=== PATIENT | female | born 2000 | race Hispanic/Latino ===

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

== ENCOUNTER 2021-09-19 19:52 | Emergency (ER) | payer OTHER, SELFPAY ==
[2021-09-19 20:02] VITALS: BP 121/66; PULSE 90; RESP 18; TEMP 36.1; O2SAT 100; BMI 27.4
--- NOTE | 2021-09-19 22:03 | ED_ITS ---
HPI - General Adult General Chief complaint: Urogenital-Female Stated complaint: 6WKS FEELS NOT RIGHT AROUND NITROUS GAS Time Seen by Provider: 09/19/21 21:01 Source: patient Mode of arrival: Ambulatory History of Present Illness HPI narrative: Patient is a 21-year-old female. She does recently found out she was . Has not seen an Ob up to this point. Does have vitamins at home. 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 She is also having some abdominal cramping. No vaginal bleeding. Related Data Allergies Allergy/AdvReac Type Severity Reaction Status Date / Time No Known Drug Allergies Allergy Verified 11/28/20 18:34 Review of Systems Gastrointestinal Gastrointestinal: Reports as per HPI and Reports system reviewed and no additional complaints, except as documented Genitourinary Genitourinary: Reports system reviewed and no additional complaints, except as documented and Reports as per HPI Hematologic/Lymphatic On Anticoagulants: No Patient History Medical History Healthy adult Social History Smoking Status: Never smoker Smoking Status: Never smoker alcohol intake frequency: other Substance Use Type: does not use Exam Initial Vital Signs Initial Vital Signs: Vital Signs Temperature 97 F L 09/19/21 20:02 Pulse Rate 90 09/19/21 20:02 Respiratory Rate 18 09/19/21 20:02 Blood Pressure 121/66 09/19/21 20:02 Pulse Oximetry 100 09/19/21 20:02 HENMT Head: normal to inspection and normocephalic Resp Effort & Inspection: normal respiratory effort Cardio Rate: regular rate GI Inspection: normal to inspection Neuro General: patient alert and patient awake Extrem General: normal to inspection Course Orders Ordered: ED Orders 09/19/21 22:15 Urine Culture Stat Urine Microscopic Stat Vital Signs Vital signs: Vital Signs - 8 hr 09/19/21 20:02 09/19/21 22:36 Temperature 97 F L Pulse Rate 90 88 Respiratory Rate 18 18 Blood Pressure 121/66 118/65 Pulse Oximetry 100 100 Medical Decision Making Lab Data Labs: Lab Results 09/19/21 Range/Units 22:15 Urine RBC None seen (0-5/HPF) Urine WBC 1-5/hpf (0-5/HPF) Ur Squamous Epith Cells 0-1 /hpf (0-5/HPF) Urine Bacteria Few (2-10) H (None) Ur Culture Indicated? Culture not indicate Micro UA Comment * Point of Care Testing Test Results Positive Urine Dip Bedside Urine Glucose Negative Bedside Urine Bilirubin - Negative Bedside Urine Ketone - Negative Urine Specific [place] 1.010 Bedside Urine Occult Blood - Negative Bedside Urine pH 6.0 Bedside Urine Protein - Negative Bedside Urine Urobilinogen - Negative Bedside Urine Nitrite - Negative Bedside Urine Leukocytes + 70 Esterase Point of care testing: Point of Care Testing Test Results Positive Urine Dip Bedside Urine Glucose Negative Bedside Urine Bilirubin - Negative Bedside Urine Ketone - Negative Urine Specific [place] 1.010 Bedside Urine Occult Blood - Negative Bedside Urine pH 6.0 Bedside Urine Protein - Negative Bedside Urine Urobilinogen - Negative Bedside Urine Nitrite - Negative Bedside Urine Leukocytes + 70 Esterase MDM Narrative Medical decision making narrative: Urinalysis shows no signs of an infection. She is not having any vaginal bleeding. Her test is positive. Informed her that she should talk with her employer about her status and should probably try to avoid excessive exposure to nitrous oxide. No further workup needed here in the e mergency department. She does have vitamins at home. She was given return precautions. She expressed understanding and agreement. Discharge Plan Departure Patient Disposition: Home Clinical Impression: Activity Restrictions/Additional Instructions: Continue to take your vitamins on a daily basis. Be sure to contact your OB provider for follow-up. Be sure to inform your employer of your status. Return to the emergency department for any new or worsening symptoms.
[2021-09-19 22:36] VITALS: BP 118/65; PULSE 88; RESP 18; O2SAT 100
[2021-09-20 00:29] LABS: Bacteria Urine Few (2-10); RBC Urine None Seen (0-5/HPF); Squamous Epithelial Cell Urine 0-1 /HPF (0-5/HPF); WBC Urine 1-5/HPF (0-5/HPF)
== END 2021-09-19 22:37 | disposition home or self-care (01) ==
PROVIDERS: Emergency Provider Emergency Medicine
DX: Z32.01 Encounter for pregnancy test, result positive (principal)
CPT/HCPCS: 81003; 81015; 81025; 87086; 99282

== ENCOUNTER → 2021-11-19 10:12 | Outpatient (CLI) | payer OTHER, SELFPAY ==
[2021-11-19 10:49] LABS: Add Manual Diff / Slide Review NO; Basophils Absolute Auto 0 /uL (0-100); Basophils Percent Auto 0.3 % (0-2); Eosinophils Absolute Auto 0 /uL (0-450); Eosinophils Percent Auto 0.3 % (2-4); Hemoglobin 10.9 g/dL (12.0-16.0); Lymphocytes Absolute Auto 1400 /uL (1100-4500); Lymphocytes Percent Auto 21.1 % (25-40); Mean Corpuscular HGB Conc 33.1 % (30-36); Mean Corpuscular Hemoglobin 25.6 PG (26-34); Mean Corpuscular Volume 77.2 fL (80-100); Monocytes Absolute Auto 500 /uL (0-900); Monocytes Percent Auto 7.8 % (3-14); Neutrophils Absolute Auto 4600 /uL (1500-7000); Neutrophils Percent Auto 70.5 % (50-75); Platelet Count 275 X10^3/uL (150-400); Red Blood Cell Count 4.28 X10^6/uL (4.0-5.2); Red Cell Distribution Width 18.6 % (11.6-14.8); White Blood Cell Count 6.5 X10^3/uL (4.5-11.0)
[2021-11-19 13:06] LABS: Appearance Urine UA CLEAR; Bilirubin Urine UA NEGATIVE (NEGATIVE); Color Urine UA YELLOW; Glucose Urine UA NEGATIVE (Negative); Ketones Urine UA NEGATIVE (NEGATIVE); Leukocyte Esterase Urine UA NEGATIVE (NEGATIVE); Nitrite Urine UA NEGATIVE (Negative); Occult Blood Urine UA TRACE-INTACT (Negative); Protein Urine UA NEGATIVE (Negative); Urobilinogen Urine UA 0.2 E.U./dL (0.2); pH Urine UA 6.5 (4.5-8.0)
[2021-11-19 22:24] LABS: Urine N gonorrhoeae NOT DETECTED
[2021-11-19 22:45] LABS: Urine Chlamydia NOT DETECTED
[2021-11-20 08:06] LABS: RPR Screen Non Reactive (Non Reactive)
[2021-11-20 08:09] LABS: Varicella IgG Antibody 549 index (Immune >165)
[2021-11-20 17:29] LABS: HIV 1 & 2 Ab/Ag 4th Gen Combo NEGATIVE (NEGATIVE); Hep C Virus Ab w/Reflex Quant NEGATIVE s/c (NEGATIVE); Hepatitis B Surface Antigen NEGATIVE s/c (NEGATIVE); Rubella Antibody IgG 9.2 IU/mL (>15)
== END ==
PROVIDERS: Referring Provider Obstetrics & Gynecology; Visit Provider Obstetrics & Gynecology
DX: Z34.01 Encounter for supervision of normal first pregnancy, first trimester (principal); Z3A.10 10 weeks gestation of pregnancy
CPT/HCPCS: 36415; 80055; 81003; 86787; 86803; 86850; 86900; 86901; 87086; 87389; 87491; 87591

== ENCOUNTER → 2021-12-17 08:24 | Outpatient (CLI) | payer OTHER, SELFPAY ==
[2021-12-19 20:38] LABS: AFP, Serum 29.2 ng/mL (.); Estriol, Free 1.35 ng/mL (.); Inhibin A, Dimeric 132.48 pg/mL (.); Maternal Ethnicity Other (.); Maternal Weight 168 lbs (.); Number of Fetuses No (.); OSBR Risk 1 IN 10000 (.); Results Report (.); Test Results *Screen Negative* (.); hCG, Serum 28402 mIU/mL (.)
== END ==
PROVIDERS: Referring Provider Obstetrics & Gynecology; Visit Provider Obstetrics & Gynecology
DX: Z34.02 Encounter for supervision of normal first pregnancy, second trimester (principal); Z3A.17 17 weeks gestation of pregnancy
CPT/HCPCS: 36415; 82105; 82677; 84702; 86336

== ENCOUNTER → 2022-01-06 07:10 | Outpatient (CLI) | payer OTHER, SELFPAY ==
--- NOTE | 2022-01-06 07:13 | DI.US.S_ITS ---
PROCEDURE: US OB >= 14 WEEKS FETUS INDICATIONS: ANATOMY OUTSIDE/PRIOR DATING DATA: Last menstrual period (LMP): Unknown. LMP-based estimated date of delivery (GABRIELE): Unknown First dating scan (date and location): 01/06/2022. Estimated date of delivery (GABRIELE) from first dating scan: 05/20/2022. TECHNIQUE: Real-time scanning was performed of the fetus, with image documentation and biometric measurements. Endovaginal scanning: None COMPARISON: None. FINDINGS: General: A single living intrauterine gestation is present. Presentation: Vertex. Placenta: Placental position is posterior. Internal cervical os not well visualized due to positioning. Amniotic fluid index: 16.6 cm, normal range is 5-24 cm. Single deepest vertical pocket is 5.5 cm. heart rate: 141 beats per minute. Maternal cervical canal: 3.2 cm long. Normal lower limit is 2.5 cm. biometrics: Biparietal diameter: 4.9 cm, 20 week 5 day Head circumference: 1 point 17.5 cm, 20 week 0 day Abdominal circumference: 16.6 cm, 21 week 5 day Femur length: 3.4 cm, 20 week 5 day Clinically estimated gestational age: Not applicable Composite gestational age from present scan: 20 week 6 day Estimated weight and percentile: 398 g Anatomic survey: Neuro: Ventricles are non-dilated at less than 10 mm. Cisterna magna is normal at 3-11 mm. Cerebellum is normal in size and morphology. Nuchal skin fold: Normal at less than 6 mm between 14-21 weeks gestational age. Face: Not well visualized Spine: No evidence for spina bifida. Heart: 4-chambered heart is present, with normal ventricular outflow tracts. Diaphragm: Diaphragm is intact. Stomach: Left-sided stomach is present. Kidneys: No hydronephrosis. Normal is less than 5 mm in 2nd trimester, less than 7 mm in 3rd trimester. Cord: 3-vessel cord has orthotopic insertion. Bladder: Normal in size. Extremities: All 4 extremities identified. IMPRESSION: Single live intrauterine consistent with 20 week 6 day gestation by current ultrasound. face, nose and lips not well visualized due to positioning. Remaining visualized anatomy within normal limits Internal cervical os not well visualized as well, and previa not excluded. Evaluate on follow-up imaging. Approved by: Cosme Hurtado M.D. on 01/06/2022 at 10:30
== END ==
PROVIDERS: Referring Provider Obstetrics & Gynecology; Visit Provider Obstetrics & Gynecology
DX: Z34.82 Encounter for supervision of other normal pregnancy, second trimester (principal); Z3A.20 20 weeks gestation of pregnancy
CPT/HCPCS: 76811

== ENCOUNTER → 2022-01-20 06:34 | Outpatient (CLI) | payer OTHER, SELFPAY ==
--- NOTE | 2022-01-20 06:40 | DI.US.S_ITS ---
PROCEDURE: US OB FOLLOW UP INDICATIONS: Finish survey, visualize face and rule out previa OUTSIDE/PRIOR DATING DATA: Last menstrual period (LMP): Un known LMP-based estimated date of delivery (GABRIELE): Unknown First dating scan (date and location): 01/06/2022 Estimated date of delivery (GABRIELE) from first dating scan: 05/20/2022. The calculations are made using the study generated GABRIELE of 05/20/2022. TECHNIQUE: Real-time scanning was performed of the fetus, with image documentation . Endovaginal scanning: Not indicated COMPARISON: [facility], OB >= 14 WEEKS FETUS, 01/06/2022, 7:35. FINDINGS: General: A single living intrauterine gestation is present. Presentation: Breech. Placenta: Placental position is posterior, without previa. Amniotic fluid index: 17.5 cm, normal range is 5-24 cm. Single deepest vertical pocket is 5.4 cm. heart rate: 141 beats per minute. Maternal cervical canal: 3.2 cm long. Normal lower limit is 2.5 cm. Composite gestational age from present scan: 22 weeks, 6 days. Other: facial profile is visualized on the current study and is within normal limits. IMPRESSION: Single live intrauterine gestation with fetus in breech presentation. heart rate is 141 beats per minute. Normal amount of amniotic fluid. Normal facial profile seen on the current study. Dictated by: Karan Reich M.D. on 01/20/2022 at 9:33 Approved by: Karan Reich M.D. on 01/20/2022 at 9:36
== END ==
PROVIDERS: Referring Provider Obstetrics & Gynecology; Visit Provider Obstetrics & Gynecology
DX: Z34.02 Encounter for supervision of normal first pregnancy, second trimester (principal)
CPT/HCPCS: 76816

== ENCOUNTER → 2022-02-14 09:24 | Outpatient (CLI) | payer OTHER, SELFPAY ==
[2022-02-14 12:36] LABS: Hematocrit 28.3 % (36-46); Hemoglobin 9.2 g/dL (12.0-16.0)
[2022-02-14 13:03] LABS: GTT (PREG) 1 Hour PP 50gm Dose 104 mg/dL (76-139)
== END ==
PROVIDERS: Referring Provider Obstetrics & Gynecology; Visit Provider Obstetrics & Gynecology
DX: Z34.02 Encounter for supervision of normal first pregnancy, second trimester (principal); Z3A.26 26 weeks gestation of pregnancy
CPT/HCPCS: 36415; 82950; 85014; 85018

== ENCOUNTER 2022-02-19 08:36 | Emergency (ER) | payer OTHER, SELFPAY ==
[2022-02-19] VITALS (12 sets, daily range): BP systolic 98–124; BP diastolic 56–76; PULSE 76–101; RESP 16–18; TEMP 36.9; O2SAT 98–100; BMI 29.1
--- NOTE | 2022-02-19 08:53 | ED_ITS ---
HPI - Nausea/Vomiting/Diarrhea General Chief complaint: Nausea/Vomiting/Diarrhea Stated complaint: throwing up after starting new meds- 6.5 mo preg Time Seen by Provider: 02/19/22 08:45 History of Present Illness HPI Narrative: Patient here with partner, vomited 6 times this morning. In the past few days has had mild diffuse headache. No sick contacts. Had chills this morning. She did start iron supplement pill this morning. Not had that before. No urinary complaints. No abdominal pain. No fluid leak or vaginal bleeding. Patient is 27 weeks . Patient is . Last OB appointment was February 12, 2022. Expected due date May 2022. heart tone 126 Related Data Home Medications Medication Instructions Recorded Confirmed prenat.vits,vani,pcp-blpe-qccll 1 tab PO DAILY 11/12/21 02/12/22 Previous Rx's Medication Instructions Recorded ondansetron HCl 4 mg tablet 4 mg PO Q8H PRN nausea and 11/19/21 vomiting #20 tabs ferrous sulfate 325 mg (65 mg 325 mg PO DAILY #90 tabs 02/14/22 iron) tablet (Iron (ferrous sulfate)) Allergies Allergy/AdvReac Type Severity Reaction Status Date / Time peanuts Allergy Intermediate Rash Uncoded 02/12/22 09:38 Review of Systems Review of Systems Narrative: GENERAL: Positive chills, fatigue, negative malaise, fever, sweats. HEENT: Denies sinus pain, ear pain, sore throat RESPIRATORY: Denies dyspnea, cough CARDIOVASCULAR: Denies chest pain, palpitations GASTROINTESTINAL: Positive nausea, vomiting, negative abdominal pain : Denies dysuria, frequency, hematuria MUSCULOSKELETAL: denies muscle or bony pain SKIN: Denies rash, skin lesions NEUROLOGIC: Denies weakness, numbness, positive headache ROS Unobtainable: All systems reviewed & are unremarkable except as noted in HPI and below Patient History Medical History Healthy adult Surgical History [place] teeth extracted Family History Father Diabetes mellitus Hypothyroid Grandmother Hypothyroid Family/Other H/O thyroidectomy Brother Hyperlipidemia Mother Hypertension Cervical cancer Social History marital status: number of children: 0 household members: spouse lives independently: Yes housing: house pets and animals: Yes education level: vocational 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) current occupational exposures/hazards: Yes (nitrous oxide, performs x-rays) special sofia needs: No travel history: over 6 months ago seatbelt use: always water heater temp set < 120 deg: Yes working smoke detector in home: Yes fire extinguisher in home: Yes carbon monox detector in home: Yes firearms in home: Yes do you feel safe at home: Yes Smoking Status: Never smoker second hand exposure: No alcohol intake: never substance use type: does not use during the past year weight has: other (fluctuated) well-balanced diet: about half the time daily servings fruits/ve-1 caffeine: No Type(s) of exercise: weight lifting Smoking Status: Never smoker alcohol intake frequency: other Substance Use Type: does not use Exam Narrative Exam Narrative: GENERAL: in no distress, not toxic not dyspneic HEAD: Normocephalic. EYES: Pupils equal round No scleral icterus. ENT: Mucous membranes moist. NECK: Trachea midline. Supple, no meningeal signs, full active range of motion without pain. CARDIOVASCULAR: Regular rate and rhythm without murmurs RESPIRATORY: Clear to auscultation. Breath sounds equal bilaterally. No wheezes, rales, or rhonchi. GASTROINTESTINAL: Abdomen soft, non-tender, bowel sounds present. No peritoneal signs. EXTREMITIES: No gross deformities. BACK: No flank tenderness. NEURO: AOx4. SKIN: Warm and dry PSYCH: Not anxious, is cooperative Initial Vital Signs Initial Vital Signs: Vital Signs Pulse Rate 91 H 02/19/22 08:43 Pulse Oximetry 98 02/19/22 08:43 Course Course Course Narrative: No new issues during course of stay Orders Ordered: ED Orders 02/19/22 09:04 Urine Culture Stat Urine Microscopic Stat 02/19/22 09:08 CBC Auto Diff [Complete Blood Count AUTO DIFF] Stat CMP [Comprehensive Metabolic Panel] Stat Respiratory Panel (Film Array) Stat Discontinued Medications Sodium Chloride (Normal Saline 0.9%) 1,000 mls @ 1,000 mls/hr IV BOLUS ONE Stop: 02/19/22 09:50 Last Infusion: 02/19/22 10:46 Dose: 0 mls/hr Documented By: Admin: 02/19/22 09:20 Dose: 1,000 mls/hr Documented By: DEE Ondansetron HCl (Ondansetron 4 Mg/2 Ml Inj) 4 mg IV NOW ONE Stop: 02/19/22 08:52 Last Admin: 02/19/22 09:19 Dose: 4 mg Documented By: DEE Reevaluation(s) Reevaluation #1: Reviewed results with patient and partner. At this time symptom-free. Return precautions reviewed with patient. I did review with them my conversation with her OBGYN. No antibiotics at this time. They will follow the urine culture. Try to take the iron pill tomorrow and if not tolerated to stop taking it and call her OBGYN. Time: 11:39 Consultations Consultation #1: Spoke with patient's OBGYN, dr diane, has reviewed results from exam today. No antibiotics for urine results. She states that is common finding at this state of on urinalysis. Try iron pill again tomorrow and if not tolerated may stop it and call office. See her in her next scheduled appointment. No need to transfer to LD floor for any monitoring Time: 11:30 Vital Signs Vital signs: Vital Signs - 8 hr 02/19/22 08:48 02/19/22 08:43 02/19/22 08:44 Temperature 98.5 F Pulse Rate 94 H 91 H Respiratory Rate 18 Blood Pressure 124/56 L 124/58 L Pulse Oximetry 100 98 Oxygen Delivery Method Room Air 02/19/22 08:44 02/19/22 09:00 02/19/22 09:10 Temperature Pulse Rate 93 H 101 H Respiratory Rate Blood Pressure 114/61 Pulse Oximetry 99 98 Oxygen Delivery Method 02/19/22 09:10 02/19/22 09:30 02/19/22 09:31 Temperature Pulse Rate 83 85 Respiratory Rate Blood Pressure 103/56 L Pulse Oximetry 98 99 Oxygen Delivery Method 02/19/22 09:31 02/19/22 10:00 02/19/22 10:00 Temperature Pulse Rate 85 95 H Respiratory Rate Blood Pressure 98/57 L Pulse Oximetry 100 99 Oxygen Delivery Method 02/19/22 10:30 02/19/22 10:30 02/19/22 10:49 Temperature Pulse Rate 86 Respiratory Rate Blood Pressure 106/57 L 108/68 Pulse Oximetry 99 Oxygen Delivery Method 02/19/22 10:49 02/19/22 11:00 02/19/22 11:50 Temperature Pulse Rate 76 82 88 Respiratory Rate 16 Blood Pressure 103/76 Pulse Oximetry 100 99 99 Oxygen Delivery Method Room Air MDM - Nausea/Vomiting/Diarrhea Differential Diagnosis Differential diagnosis: Likely dehydration and other (Medication reaction /UTI/dehydration/viral infection) Lab Data Result diagrams: 02/19/22 09:08 02/19/22 09:08 Labs: Lab Results 02/19/22 02/19/22 02/19/22 Range/Units 09:04 09:08 09:08 WBC 10.5 (4.5-11.0) X10^3/uL RBC 4.31 (4.0-5.2) X10^6/uL Hgb 10.7 L (12.0-16.0) g/dL Hct 33.4 L (36-46) % MCV 77.5 L (80-100) fL MCH 24.8 L (26-34) PG MCHC 32.0 (30-36) % RDW 16.6 H (11.6-14.8) % Plt Count 296 (150-400) X10^3/uL Neut % (Auto) 74.5 (50-75) % Lymph % (Auto) 18.4 L (25-40) % [place] % (Auto) 6.5 (3-14) % Eos % (Auto) 0.3 L (2-4) % Baso % (Auto) 0.3 (0-2) % Neut # (Auto) 7800 H (2914-0534) /uL Lymph # (Auto) 1900 (6758-6716) /uL [place] # (Auto) 700 (0-900) /uL Eos # (Auto) 0 (0-450) /uL Baso # (Auto) 0 (0-100) /uL Sodium 138 (137-145) mmol/L Potassium 3.7 (3.4-5.1) mmol/L Chloride 104 (98-107) mmol/L Carbon Dioxide 22 (22-32) mmol/L BUN 4 L (7-17) mg/dL Creatinine 0.43 L (0.52-1.04) mg/dL Estimated GFR > 60 (>60) mL/min BUN/Creatinine Ratio 9.3 (6-22) Glucose 89 (70-100) mg/dL Calcium 8.9 (8.4-10.2) mg/dL Total Bilirubin 0.3 (0.2-1.3) mg/dL AST 17 (14-36) IU/L ALT 11 (<35) IU/L Alkaline Phosphatase 88 (38-126) U/L Total Protein 8.2 (6.3-8.2) g/dL Albumin 4.3 (3.5-5.0) g/dL Globulin 3.9 (1.7-4.1) g/dL Albumin/Globulin Ratio 1.1 (1.0-2.8) Urine RBC 0-1/hpf (0-5/HPF) Urine WBC 1-5/hpf (0-5/HPF) Ur Squamous Epith Cells 1-5 /hpf (0-5/HPF) Urine Bacteria Few (2-10) H (None) Urine Yeast 1-5/hpf H (None) Ur Culture Indicated? Specimen cultured Chlamy pneumoniae PCR (Not Detect) Adenovirus (PCR) (Not Detect) B. pertussis DNA (PCR) (Not Detecte) B.parapertussis DNA PCR (Not Detecte) Coronavirus OC43 (PCR) (Not Detect) Coronavirus HKU1 (PCR) (Not Detect) Coronavirus 229E (PCR) (Not Detect) SARS-CoV-2 (PCR) (Not Detecte) Coronavirus NL63 (PCR) (Not Detect) Human Metapneumovir PCR (Not Detect) Influenza Type A (PCR) (Not Detect) Influenza Type B (PCR) (Not Detect) M. pneumoniae (PCR) (Not Detect) Parainfluenza 1 (PCR) (Not Detect) Parainfluenza 2 (PCR) (Not Detect) Parainfluenza 3 (PCR) (Not Detect) Parainfluenza 4 (PCR) (Not Detect) RSV (PCR) (Not Detect) Entero/Rhino (PCR) (Not Detect) 02/19/22 Range/Units 09:08 WBC (4.5-11.0) X10^3/uL RBC (4.0-5.2) X10^6/uL Hgb (12.0-16.0) g/dL Hct (36-46) % MCV (80-100) fL MCH (26-34) PG MCHC (30-36) % RDW (11.6-14.8) % Plt Count (150-400) X10^3/uL Neut % (Auto) (50-75) % Lymph % (Auto) (25-40) % [place] % (Auto) (3-14) % Eos % (Auto) (2-4) % Baso % (Auto) (0-2) % Neut # (Auto) (9022-2929) /uL Lymph # (Auto) (2476-8026) /uL [place] # (Auto) (0-900) /uL Eos # (Auto) (0-450) /uL Baso # (Auto) (0-100) /uL Sodium (137-145) mmol/L Potassium (3.4-5.1) mmol/L Chloride (98-107) mmol/L Carbon Dioxide (22-32) mmol/L BUN (7-17) mg/dL Creatinine (0.52-1.04) mg/dL Estimated GFR (>60) mL/min BUN/Creatinine Ratio (6-22) Glucose (70-100) mg/dL Calcium (8.4-10.2) mg/dL Total Bilirubin (0.2-1.3) mg/dL AST (14-36) IU/L ALT (<35) IU/L Alkaline Phosphatase (38-126) U/L Total Protein (6.3-8.2) g/dL Albumin (3.5-5.0) g/dL Globulin (1.7-4.1) g/dL Albumin/Globulin Ratio (1.0-2.8) Urine RBC (0-5/HPF) Urine WBC (0-5/HPF) Ur Squamous Epith Cells (0-5/HPF) Urine Bacteria (None) Urine Yeast (None) Ur Culture Indicated? Chlamy pneumoniae PCR Not detected (Not Detect) Adenovirus (PCR) Not detected (Not Detect) B. pertussis DNA (PCR) Not detected (Not Detecte) B.parapertussis DNA PCR Not detected (Not Detecte) Coronavirus OC43 (PCR) Not detected (Not Detect) Coronavirus HKU1 (PCR) Not detected (Not Detect) Coronavirus 229E (PCR) Not detected (Not Detect) SARS-CoV-2 (PCR) Not detected (Not Detecte) Coronavirus NL63 (PCR) Not detected (Not Detect) Human Metapneumovir PCR Not detected (Not Detect) Influenza Type A (PCR) Not detected (Not Detect) Influenza Type B (PCR) Not detected (Not Detect) M. pneumoniae (PCR) Not detected (Not Detect) Parainfluenza 1 (PCR) Not detected (Not Detect) Parainfluenza 2 (PCR) Not detected (Not Detect) Parainfluenza 3 (PCR) Not detected (Not Detect) Parainfluenza 4 (PCR) Not detected (Not Detect) RSV (PCR) Not detected (Not Detect) Entero/Rhino (PCR) Not detected (Not Detect) Urine Dip Bedside Urine Glucose Negative Bedside Urine Bilirubin - Negative Urine Specific [place] 1.020 Bedside Urine Occult Blood - Negative Bedside Urine pH 6.0 Bedside Urine Protein - Negative Bedside Urine Urobilinogen - Negative Bedside Urine Nitrite - Negative Bedside Urine Leukocytes + 70 Esterase MDM Narrative Medical decision making narrative: Appropriate for discharge home. Exam and laboratories are reassuring. No imaging indicated this time. I did review with patient's OBGYN and further instructions were given. Return precautions reviewed with patient. She desires discharge home. Not toxic or discharge. Discharge Plan Departure Patient Disposition: Home Clinical Impression: Acute vomiting Instructions: DI for Vomiting -- Adult Activity Restrictions/Additional Instructions: Return if worse if any questions or concerns. See your OBGYN doctor on next scheduled appointment. Keep well hydrated. May try taking iron pill again tomorrow and if not tolerated then stop taking it and call the office for further instructions. Prescriptions: No Action ferrous sulfate [Iron (ferrous sulfate)] 325 mg (65 mg iron) tablet 325 mg PO DAILY Qty: 90 0RF ondansetron HCl 4 mg tablet 4 mg PO Q8H PRN (Reason: nausea and vomiting) Qty: 20 0RF prenat.vits,vani,[id number]-[id number] Tablet 1 tab PO DAILY Referrals: Twyla Diane MD [Physician] - Stand Alone Forms: Work Release Note Visit Report Forms: Patient Portal/API
[2022-02-19 09:11] LABS: Bacteria Urine Few (2-10); Culture Indicated Urine Specimen Cultured; RBC Urine 0-1/HPF (0-5/HPF); Squamous Epithelial Cell Urine 1-5 /HPF (0-5/HPF); WBC Urine 1-5/HPF (0-5/HPF)
[2022-02-19 09:17] LABS: Add Manual Diff / Slide Review NO; Basophils Absolute Auto 0 /uL (0-100); Basophils Percent Auto 0.3 % (0-2); Eosinophils Absolute Auto 0 /uL (0-450); Eosinophils Percent Auto 0.3 % (2-4); Hematocrit 33.4 % (36-46); Hemoglobin 10.7 g/dL (12.0-16.0); Lymphocytes Absolute Auto 1900 /uL (1100-4500); Lymphocytes Percent Auto 18.4 % (25-40); Mean Corpuscular Hemoglobin 24.8 PG (26-34); Mean Corpuscular Volume 77.5 fL (80-100); Monocytes Absolute Auto 700 /uL (0-900); Monocytes Percent Auto 6.5 % (3-14); Neutrophils Absolute Auto 7800 /uL (1500-7000); Neutrophils Percent Auto 74.5 % (50-75); Platelet Count 296 X10^3/uL (150-400); Red Blood Cell Count 4.31 X10^6/uL (4.0-5.2); Red Cell Distribution Width 16.6 % (11.6-14.8); White Blood Cell Count 10.5 X10^3/uL (4.5-11.0)
[2022-02-19] MEDS: ONDANSETRON 4 MG/2 ML INJ IV (09:19)
[2022-02-19] MEDS: SODIUM CHLORIDE 0.9% 1,000 ML 1000 ML IV (09:20)
[2022-02-19 09:28] LABS: Alanine Aminotransferase 11 IU/L (<35); Albumin 4.3 g/dL (3.5-5.0); Albumin Globulin Ratio 1.1 (1.0-2.8); Alkaline Phosphatase 88 U/L (38-126); Aspartate Aminotransferase 17 IU/L (14-36); BUN Creatinine Ratio 9.3 (6-22); Bilirubin Total 0.3 mg/dL (0.2-1.3); Blood Urea Nitrogen 4 mg/dL (7-17); Calcium 8.9 mg/dL (8.4-10.2); Carbon Dioxide 22 mmol/L (22-32); Chloride 104 mmol/L (98-107); Estimated Glomerular Filt Rate > 60 mL/min (>60); Globulin 3.9 g/dL (1.7-4.1); Glucose 89 mg/dL (70-100); HEMOLYSIS < 15 (0-50); Potassium 3.7 mmol/L (3.4-5.1); Sodium 138 mmol/L (137-145); Total Protein 8.2 g/dL (6.3-8.2)
[2022-02-19 10:08] LABS: Adenovirus Not Detected (Not Detect); B. parapertussis Not Detected (Not Detecte); Bordetella pertussis Not Detected (Not Detecte); Chlamydophila pneumoniae Not Detected (Not Detect); Coronavirus 229E Not Detected (Not Detect); Coronavirus HKU1 Not Detected (Not Detect); Coronavirus NL 63 Not Detected (Not Detect); Coronavirus OC43 Not Detected (Not Detect); Human Metapneumovirus Not Detected (Not Detect); Human Rhinovirus/Enterovirus Not Detected (Not Detect); Influenza A Not Detected (Not Detect); Influenza B Not Detected (Not Detect); Mycoplasma pneumoniae Not Detected (Not Detect); Parainfluenza Virus 1 Not Detected (Not Detect); Parainfluenza Virus 2 Not Detected (Not Detect); Parainfluenza Virus 3 Not Detected (Not Detect); Parainfluenza Virus 4 Not Detected (Not Detect); Respiratory Syncytial Virus Not Detected (Not Detect); SARS- CoV-2 Not Detected (Not Detecte)
== END 2022-02-19 11:51 | disposition home or self-care (01) ==
PROVIDERS: Emergency Provider Emergency Medicine; Referring Provider Obstetrics & Gynecology
DX: O21.9 Vomiting of pregnancy, unspecified (principal); Z3A.27 27 weeks gestation of pregnancy; Z20.822 Contact with and (suspected) exposure to COVID-19
CPT/HCPCS: 36415; 80053; 81003; 81015; 85025; 87086; 87633; 96361; 96374; 99284; J2405

== ENCOUNTER → 2022-03-16 10:11 | Outpatient (CLI) | payer OTHER, SELFPAY ==
[2022-03-18 06:36] LABS: Candida species Positive (Negative); Gardnerella vaginalis Positive (Negative); Trichomoas vaginalis Negative (Negative)
== END ==
PROVIDERS: Visit Provider Physician Assistant Medical
DX: Z34.83 Encounter for supervision of other normal pregnancy, third trimester (principal); N89.8 Other specified noninflammatory disorders of vagina; Z3A.30 30 weeks gestation of pregnancy
CPT/HCPCS: 87086; 87480; 87510; 87660

== ENCOUNTER → 2022-04-13 14:46 | Outpatient (CLI) | payer OTHER, SELFPAY ==
--- NOTE | 2022-04-13 14:47 | DI.US.S_ITS ---
PROCEDURE: US OB LIMITED INDICATIONS: SGA OUTSIDE/PRIOR DATING DATA: Last menstrual period (LMP): Unknown. LMP-based estimated date of delivery (GABRIELE): Unknown. First dating scan (date and location): 01/06/2022. Estimated date of delivery (GABRIELE) from first dating scan: 05/20/2022. The calculations are made using the ultrasound GABRIELE of 05/20/2022. TECHNIQUE: Real-time scanning was performed of the fetus, with image documentation. COMPARISON: [facility], , OB FOLLOW UP, 01/20/2022, 6:47. FINDINGS: A single living intrauterine gestation is present. Presentation: Vertex. Placenta: Placental position is posterior right, without previa. Amniotic fluid index: 10.6 cm, normal range is 5-24 cm. Single deepest vertical pocket is 3.8 cm. heart rate: 140 beats per minute. Maternal cervical canal: Not seen. Biometric measurements: BPD: 8.6 cm, 34 weeks 4 days HC: 32.3 cm, 36 weeks 3 days AC: 31.3 cm, 35 weeks 2 days FL: 6.9 cm, 35 weeks 2 days Clinically estimated gestational age: 34 weeks 5 days Estimated gestational age from today's exam: 35 weeks 3 days Estimated weight: 2645 g, 64th percentile. IMPRESSION: 1. Fu living intrauterine at 35 weeks 3 days based on today's ultrasound. Fetus is at the 64th percentile for weight. 2. Normal placenta and amniotic fluid. Dictated by: Dain Jimenez M.D. on 04/13/2022 at 16:37 Approved by: Dain Jimenez M.D. on 04/13/2022 at 16:41
== END ==
PROVIDERS: Referring Provider Obstetrics & Gynecology; Visit Provider Obstetrics & Gynecology
DX: O26.843 Uterine size-date discrepancy, third trimester (principal); Z3A.35 35 weeks gestation of pregnancy
CPT/HCPCS: 76815

== ENCOUNTER 2022-05-09 11:20 | Outpatient (CLI) | payer OTHER, SELFPAY ==
--- NOTE | 2022-05-09 11:41 | P.TNLD_ITS ---
Visit Information Visit Information Date of evaluation: 05/09/22 Primary OB Provider: Melani Delgado On-call OB Provider: Melani Delgado Reason for Evaluation: Yes rupture of membranes Comments/Additional reasons for admission: 21YO @ 38wks 1day by early ultrasound. Awoke to clear fluid leaking at 0400. Contractions started shortly after and continued to progress in frequency and intensity. now fahad every 3 minutes uncomfortably. Still able to walk and talk through them. Feeling lots of low back pain. No vaginal bleeding. Transferred into [facility] care at 33 weeks from OB . Uncomplicated and GBS negative. Originally planning unmedicated , now undecided. 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) current occupational exposures/hazards: Yes (nitrous oxide, performs x-rays) special sofia needs: No travel history: over 6 months ago seatbelt use: always water heater temp set < 120 deg: Yes working smoke detector in home: Yes fire extinguisher in home: Yes carbon monox detector in home: Yes firearms in home: Yes do you feel safe at home: Yes Smoking Status: Never smoker second hand exposure: No alcohol intake: never substance use type: does not use during the past year weight has: other (fluctuated) well-balanced diet: about half the time daily servings fruits/ve-1 caffeine: No Type(s) of exercise: weight lifting Review of Systems Review of Systems ROS: Yes All systems reviewed with the patient and are negative except as otherwise documented Exam Vital Signs (past 8 hours): see above Presentation: vertex Evaluation Evaluation Baseline heart rate: 130 Variability: Moderate (11-25) monitor accelerations: Present Monitor Decelerations: Absent Contraction Frequency (minutes): 5 Category of Tracing: Reactive Cervical dilation (cm): 5 Cervical effacement (%): 80 station: -2 Comments: leaking clear fluid Diagnosis, Plan/Disposition Final Diagnosis (1) Full-term PROM with onset of labor within 24 hours of rupture: Status: Acute Problem details: A: Term n[place]ip[place] Approaching active labor No indication for GBS prophylaxis ROM x 8 hours without sx of infection Cat I FHR Plan/Disposition Plan: 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 Patient feels comfortable with this and plans to head there directly by private vehicle. TENS unit applied to low back for low back pain with contractions. OB Disposition: other (transfer by POV to [facility])
== END 2022-05-09 12:02 | disposition home or self-care (01) ==
LOC: LABOR 12:09 → OB 05-13 09:07
PROVIDERS: Referring Provider Nurse Practitioner Obstetrics & Gynecology; Visit Provider Nurse Practitioner Obstetrics & Gynecology
DX: O42.02 Full-term premature rupture of membranes, onset of labor within 24 hours of rupture (principal); Z3A.38 38 weeks gestation of pregnancy
CPT/HCPCS: 59025; G0378; G0379

== ENCOUNTER 2023-12-16 10:47 | Emergency (ER) | payer OTHER, MEDICAID, SELFPAY ==
[2023-12-16 11:03] VITALS: BP 123/72; PULSE 70; RESP 14; TEMP 36.6; O2SAT 100; BMI 27.3
--- NOTE | 2023-12-16 11:55 | DI.US.S_ITS ---
PROCEDURE: US BREAST RT LIMITED COMPARISON: None. INDICATIONS: Breast pain FINDINGS: No significant abnormalities were seen sonographically in the right breast. Specifically, no finding to explain the patient's pain. IMPRESSION: There is no sonographic correlate to the patient's pain and no evidence of malignancy. Clinical follow-up is recommended for symptoms as needed. Screening mammography beginning at age 40 is recommended. Findings and recommendations were conveyed to the patient at time of exam. Dictated by: Paulette Hook M.D. on 12/16/2023 at 13:25 Approved by: Paulette Hook M.D. on 12/16/2023 at 13:26
--- NOTE | 2023-12-16 11:55 | DI.US.S_ITS ---
PROCEDURE: US BREAST LT LIMITED COMPARISON: None. INDICATIONS: Breast pain FINDINGS: No significant abnormalities are seen sonographically in the right breast. Specifically, no finding to explain the patient's pain. IMPRESSION: There is no sonographic correlate to the patient's pain and no evidence of malignancy. Clinical follow-up is recommended for symptoms as needed. Screening mammography beginning at age 40 is recommended. Findings and recommendations were conveyed to the patient at time of exam. Dictated by: Paulette Hook M.D. on 12/16/2023 at 13:22 Approved by: Paulette Hook M.D. on 12/16/2023 at 13:25
--- NOTE | 2023-12-16 11:59 | ED_ITS ---
HPI - Weakness <MAU Cowan - Last Filed: 12/16/23 14:26> General Chief complaint: Weakness Stated complaint: Bilateral Breast pain, Bilateral Shoulder pain Time Seen by Provider: 12/16/23 11:33 Source: patient Mode of arrival: Ambulatory History of Present Illness HPI Narrative: 23-year-old female, never smoker, presents to the emergency department with her for three-month history breast pain, fatigue and hair loss. Patient reports a familial history of thyroid disease. Patient was initially evaluated at [facility] Emergency Department where lab tests were drawn and reported as normal. 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 Patient presents today hoping to get re-evaluated. Patient is not currently and reports that she is able to eat, drink, urinate and defecate normally and without difficulty. Unsure of last menstrual period but is typically irregular. Patient's at bedside. Related Data Home Medications Medication Instructions Recorded Confirmed prenat.vits,vani,wkn-yqlv-svzca 1 tab PO DAILY 11/12/21 02/12/22 Previous Rx's Medication Instructions Recorded ondansetron HCl 4 mg tablet 4 mg PO Q8H PRN nausea and 11/19/21 vomiting #20 tabs ferrous sulfate 325 mg (65 mg 325 mg PO DAILY #90 tabs 02/14/22 iron) tablet (Iron (ferrous sulfate)) fluconazole 150 mg tablet 150 mg PO Q3D 2 doses #2 tabs 03/16/22 (Diflucan) Allergies Allergy/AdvReac Type Severity Reaction Status Date / Time peanuts Allergy Intermediate Rash Uncoded 02/12/22 09:38 Review of Systems <MAU Cowan - Last Filed: 12/16/23 14:26> Review of Systems Narrative: Narrative: See HPI. GENERAL: Denies chills, fever, sweats. Endorses fatigue and body aches. HEENT: Denies sinus pain, ear pain, sore throat, difficulty swallowing, dizziness. RESPIRATORY: Denies dyspnea, cough, wheezing, sputum. CARDIOVASCULAR: Denies chest pain, palpitations, edema. GASTROINTESTINAL: Denies nausea, vomiting, abdominal pain, diarrhea, constipation. : Denies dysuria, frequency, incontinence, hematuria, urinary retention, flank pain, vaginal itching, bleeding or discharge. MSK: Denies weakness, joint pain, or bony pain. SKIN: Denies rash, skin lesions, or pruritis. Endorses intermittent bilateral breast pain. NEUROLOGIC: Denies weakness, dizziness, headache, numbness, confusion. PSYCHIATRIC: No concerning psychosocial issues. 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) current occupational exposures/hazards: Yes (nitrous oxide, performs x-rays) special sofia needs: No travel history: over 6 months ago seatbelt use: always water heater temp set < 120 deg: Yes working smoke detector in home: Yes fire extinguisher in home: Yes carbon monox detector in home: Yes firearms in home: Yes do you feel safe at home: Yes Smoking Status: Never smoker second hand exposure: No alcohol intake: never substance use type: does not use during the past year weight has: other (fluctuated) well-balanced diet: about half the time daily servings fruits/ve-1 caffeine: No Type(s) of exercise: weight lifting Smoking Status: Never smoker tobacco type: vaping alcohol intake frequency: other Substance Use Type: marijuana Exam <MAU Cowan - Last Filed: 12/16/23 14:26> Narrative Exam Narrative: Exam Narrative: With patient's at bedside as standby. GENERAL: This is a well-nourished, well-developed patient, in no acute distress. HEAD: Atraumatic. Normocephalic. EYES: Pupils equal round and reactive. Extraocular motions intact. No scleral icterus, injection or drainage. ENT: Nose without bleeding, purulent drainage. Throat without erythema, tonsillar hypertrophy or exudate. Uvula midline. Airway patent. TMs and canals clear. No sinus tenderness. NECK: Trachea midline. No JVD or lymphadenopathy. Nontender. Normal thyroid. CARDIOVASCULAR: Regular rate and rhythm without murmurs, peripheral pulses intact, cap refill <2 sec. RESPIRATORY: Breath sounds equal and clear bilaterally. No wheezes, rales, or rhonchi. No cough. No increased respiratory effort. No accessory muscle use. GASTROINTESTINAL: Abdomen soft, non-tender, nondistended without guarding or rebound. No suprapubic pain. MSK: Moves all extremities. Normal range of motion, no clubbing or edema. Neurovascularly intact. NEURO: A&O x 3. SKIN: Warm, dry, no rashes or lesions noted. No axillary lymphadenopathy. Faint lump noted in bilateral upper outer region. Initial Vital Signs Initial Vital Signs: Vital Signs Temperature 97.9 F 12/16/23 11:03 Pulse Rate 70 12/16/23 11:03 Respiratory Rate 14 12/16/23 11:03 Blood Pressure 123/72 12/16/23 11:03 Pulse Oximetry 100 12/16/23 11:03 Oxygen Delivery Method Room Air 12/16/23 11:03 Reviewed <Ana Sheikh DO - Last Filed: 12/16/23 18:53> Initial Vital Signs Initial Vital Signs: Vital Signs Temperature 97.9 F 12/16/23 11:03 Pulse Rate 70 12/16/23 11:03 Respiratory Rate 14 12/16/23 11:03 Blood Pressure 123/72 12/16/23 11:03 Pulse Oximetry 100 12/16/23 11:03 Oxygen Delivery Method Room Air 12/16/23 11:03 Course <MAU Cowan - Last Filed: 12/16/23 14:26> Orders Ordered: ED Orders 12/16/23 11:55 US breast LT limited Stat US breast RT limited Stat 12/16/23 12:40 UA dip and micro [Urinalysis and Microscopic] Stat 12/16/23 12:50 B12 [Vitamin B12] Stat CBC Auto Diff [Complete Blood Count AUTO DIFF] Stat CMP [Comprehensive Metabolic Panel] Stat TSH [Thyroid Stimulating Hormone] Stat Vital Signs Vital signs: Vital Signs - 8 hr 12/16/23 11:03 12/16/23 14:37 Temperature 97.9 F Pulse Rate 70 98 H Respiratory Rate 14 14 Blood Pressure 123/72 116/60 Pulse Oximetry 100 99 Oxygen Delivery Method Room Air Room Air <Ana Sheikh DO - Last Filed: 12/16/23 18:53> Orders Ordered: ED Orders 12/16/23 11:55 US breast LT limited Stat US breast RT limited Stat 12/16/23 12:40 UA dip and micro [Urinalysis and Microscopic] Stat 12/16/23 12:50 B12 [Vitamin B12] Stat CBC Auto Diff [Complete Blood Count AUTO DIFF] Stat CMP [Comprehensive Metabolic Panel] Stat TSH [Thyroid Stimulating Hormone] Stat Vital Signs Vital signs: Vital Signs - 8 hr 12/16/23 11:03 12/16/23 14:37 Temperature 97.9 F Pulse Rate 70 98 H Respiratory Rate 14 14 Blood Pressure 123/72 116/60 Pulse Oximetry 100 99 Oxygen Delivery Method Room Air Room Air MDM - Weakness <MAU Cowan - Last Filed: 12/16/23 14:26> Differential Diagnosis Differential diagnosis: Likely anemia, hypothyroidism and other (Breast lump) Lab Data 12/16/23 12:50 12/16/23 12:50 Labs: Lab Results 12/16/23 12/16/23 Range/Units 12:40 12:50 WBC 8.1 (4.5-11.0) X10^3/uL RBC 4.95 (4.0-5.2) X10^6/uL Hgb 13.0 (12.0-16.0) g/dL Hct 40.1 (36-46) % MCV 80.9 (80-100) fL MCH 26.2 (26-34) PG MCHC 32.4 (30-36) % RDW 17.2 H (11.6-14.8) % Plt Count 296 (150-400) X10^3/uL Neut % (Auto) 72.8 (50-75) % Lymph % (Auto) 21.3 L (25-40) % [place] % (Auto) 5.4 (3-14) % Eos % (Auto) 0.2 L (2-4) % Baso % (Auto) 0.3 (0-2) % Neut # (Auto) 5900 (7501-3949) /uL Lymph # (Auto) 1700 (5944-6186) /uL [place] # (Auto) 400 (0-900) /uL Eos # (Auto) 0 (0-450) /uL Baso # (Auto) 0 (0-100) /uL Sodium 141 (137-145) mmol/L Potassium 3.8 (3.4-5.1) mmol/L Chloride 104 (98-107) mmol/L Carbon Dioxide 26 (22-32) mmol/L BUN 7 (7-17) mg/dL Creatinine 0.66 (0.52-1.04) mg/dL Estimated GFR > 60 (>60) mL/min BUN/Creatinine Ratio 10.6 (6-22) Glucose 88 (70-100) mg/dL Calcium 9.8 (8.4-10.2) mg/dL Total Bilirubin 0.5 (0.2-1.3) mg/dL AST 19 (14-36) IU/L ALT 18 (<35) IU/L Alkaline Phosphatase 79 (38-126) U/L Total Protein 8.4 H (6.3-8.2) g/dL Albumin 4.9 (3.5-5.0) g/dL Globulin 3.5 (1.7-4.1) g/dL Albumin/Globulin Ratio 1.4 (1.0-2.8) Vitamin B12 348 (239-931) pg/mL TSH 0.879 (0.47-4.68) uIU/mL Urine Color Yellow Urine Appearance Clear Urine pH 7.0 (4.5-8.0) Ur Specific [place] <=1.005 (1.000-1.035) Urine Protein Negative (Negative) Urine Glucose (UA) Negative (Negative) g/dL Urine Ketones Negative (NEGATIVE) Urine Occult Blood Trace-intact (Negative) Urine Nitrate Negative (Negative) Urine Bilirubin Negative (NEGATIVE) Urine Urobilinogen 0.2 (0.2) E.U./dL Ur Leukocyte Esterase Negative (NEGATIVE) Urine RBC 0-1/hpf (0-5/HPF) Urine WBC 0-1/hpf (0-5/HPF) Ur Squamous Epith Cells 0-1 /hpf (0-5/HPF) Urine Bacteria Occasional (0-1) (None) Ur Culture Indicated? Cult not indicated Vol Urine Centrifuged 10ml (spun) Point of Care Testing Test Results Negative Imaging Data US - Breast: Radiologist Impression: [address] [address] Ultrasound Report Signed Patient: Katelin Talbert MR#: [id number] : 2000 Acct:[id number] Age/Sex: 23 / F Date of Service: 12/16/23 Loc: ED Accession Number: [id number] Procedure: US breast LT limited Ordering Provider: Pipo Singh PROCEDURE:US BREAST LT LIMITED COMPARISON:None. INDICATIONS:Breast pain FINDINGS:No significant abnormalities are seen sonographically in the right breast. Specifically, no finding to explain the patient's pain. IMPRESSION: There is no sonographic correlate to the patient's pain and no evidence of malignancy. Clinical follow-up is recommended for symptoms as needed. Screening mammography beginning at age 40 is recommended. Findings and recommendations were conveyed to the patient at time of exam. Dictated by: Paulette Hook M.D. on 12/16/2023 at 13:22 Approved by: Paulette Hook M.D. on 12/16/2023 at 13:25 US - Breast 2: Radiologist Impression: [address] [address] Ultrasound Report Signed Patient: Katelin Talbert MR#: [id number] : 2000 Acct:[id number] Age/Sex: 23 / F Date of Service: 12/16/23 Loc: ED Accession Number: [id number] Procedure: US breast RT limited Ordering Provider: Pipo Singh PROCEDURE:US BREAST RT LIMITED COMPARISON:None. INDICATIONS:Breast pain FINDINGS:No significant abnormalities were seen sonographically in the right breast. Specifically, no finding to explain the patient's pain. IMPRESSION: There is no sonographic correlate to the patient's pain and no evidence of malignancy. Clinical follow-up is recommended for symptoms as needed. Screening mammography beginning at age 40 is recommended. Findings and recommendations were conveyed to the patient at time of exam. Dictated by: Paulette Hook M.D. on 12/16/2023 at 13:25 Approved by: Paulette Hook M.D. on 12/16/2023 at 13:26 MDM Narrative Medical decision making narrative: 23-year-old female with bilateral breast pain, fatigue and hair loss x3 months. Assessment was inconclusive and not sure why patient is having her symptoms. Baseline labs were non concerning with no evidence of anemia or thyroid issues at this time. Bilateral breast ultrasound was normal. Discussed results with patient and spouse as to unsure of what is causing her symptoms, but have ruled out anything dangerous at this time. Discussed plan of care and return precautions with patient and spouse, who verbalized understanding and was agreeable to course of action. <Ana Sheikh, DO - Last Filed: 12/16/23 18:53> Lab Data Labs: Lab Results 12/16/23 12/16/23 Range/Units 12:40 12:50 WBC 8.1 (4.5-11.0) X10^3/uL RBC 4.95 (4.0-5.2) X10^6/uL Hgb 13.0 (12.0-16.0) g/dL Hct 40.1 (36-46) % MCV 80.9 (80-100) fL MCH 26.2 (26-34) PG MCHC 32.4 (30-36) % RDW 17.2 H (11.6-14.8) % Plt Count 296 (150-400) X10^3/uL Neut % (Auto) 72.8 (50-75) % Lymph % (Auto) 21.3 L (25-40) % [place] % (Auto) 5.4 (3-14) % Eos % (Auto) 0.2 L (2-4) % Baso % (Auto) 0.3 (0-2) % Neut # (Auto) 5900 (0176-3466) /uL Lymph # (Auto) 1700 (5426-4320) /uL [place] # (Auto) 400 (0-900) /uL Eos # (Auto) 0 (0-450) /uL Baso # (Auto) 0 (0-100) /uL Sodium 141 (137-145) mmol/L Potassium 3.8 (3.4-5.1) mmol/L Chloride 104 (98-107) mmol/L Carbon Dioxide 26 (22-32) mmol/L BUN 7 (7-17) mg/dL Creatinine 0.66 (0.52-1.04) mg/dL Estimated GFR > 60 (>60) mL/min BUN/Creatinine Ratio 10.6 (6-22) Glucose 88 (70-100) mg/dL Calcium 9.8 (8.4-10.2) mg/dL Total Bilirubin 0.5 (0.2-1.3) mg/dL AST 19 (14-36) IU/L ALT 18 (<35) IU/L Alkaline Phosphatase 79 (38-126) U/L Total Protein 8.4 H (6.3-8.2) g/dL Albumin 4.9 (3.5-5.0) g/dL Globulin 3.5 (1.7-4.1) g/dL Albumin/Globulin Ratio 1.4 (1.0-2.8) Vitamin B12 348 (239-931) pg/mL TSH 0.879 (0.47-4.68) uIU/mL Urine Color Yellow Urine Appearance Clear Urine pH 7.0 (4.5-8.0) Ur Specific [place] <=1.005 (1.000-1.035) Urine Protein Negative (Negative) Urine Glucose (UA) Negative (Negative) g/dL Urine Ketones Negative (NEGATIVE) Urine Occult Blood Trace-intact (Negative) Urine Nitrate Negative (Negative) Urine Bilirubin Negative (NEGATIVE) Urine Urobilinogen 0.2 (0.2) E.U./dL Ur Leukocyte Esterase Negative (NEGATIVE) Urine RBC 0-1/hpf (0-5/HPF) Urine WBC 0-1/hpf (0-5/HPF) Ur Squamous Epith Cells 0-1 /hpf (0-5/HPF) Urine Bacteria Occasional (0-1) (None) Ur Culture Indicated? Cult not indicated Vol Urine Centrifuged 10ml (spun) Point of Care Testing Test Results Negative Discharge Plan Departure Patient Disposition: Home Clinical Impression: Fatigue Qualifiers: Fatigue type: unspecified Qualified Code(s): R53.83 - Other fatigue Instructions: DI for Fatigue Activity Restrictions/Additional Instructions: *You have been diagnosed with fatigue. I am sorry you have been experiencing this. My assessment was encouraging and all labs were not concerning. The ultrasound of your breasts were normal. I am not sure what is causing your symptoms, but please follow-up with your Women's Health nurse practitioner or family doctor as needed. For any worsening symptoms, please feel free to return to the emergency department. *What to do: *Please continue to take your regular medications as directed. [ ] New medication prescriptions sent to your pharmacy: [ ] [ ] New medication written as a paper prescription [x ] No new medications given *Please follow up with your primary care provider in 2-3 days, call for an appointment. Let them know you were seen in the Emergency Department and that we ask that you be seen in follow up. We will electronically transmit a record of today's note if your PCP is in our system *If you do not have a primary care provider please contact the [facility] Resource line at [phone]. They will ask some questions about your medical history and help get you set up with a doctor in the community. ? Return to ER if you should have any new, worsening or concerning symptoms, such as worsening pain, severe headache, confusion, chest pain, difficulty breathing, fever greater than 101 F, shaking chills, persistent vomiting to the point that you cannot drink fluids, or other new or worsening symptoms. Prescriptions: No Action ferrous sulfate [Iron (ferrous sulfate)] 325 mg (65 mg iron) tablet 325 mg PO DAILY Qty: 90 0RF ondansetron HCl 4 mg tablet 4 mg PO Q8H PRN (Reason: nausea and vomiting) Qty: 20 0RF fluconazole [Diflucan] 150 mg tablet 150 mg PO Q3D Qty: 2 0RF prenat.vits,vani,hhz-sfrq-nfmos Tablet 1 tab PO DAILY Stand Alone Forms: Patient Portal/API ED Sign-out <Ana Sheikh DO - Last Filed: 12/16/23 18:53> Cosign ED Attending [place] Attestation: I was immediately available in the department for consultation.
[2023-12-16 12:57] LABS: Add Manual Diff / Slide Review NO; Basophils Absolute Auto 0 /uL (0-100); Basophils Percent Auto 0.3 % (0-2); Eosinophils Absolute Auto 0 /uL (0-450); Eosinophils Percent Auto 0.2 % (2-4); Hematocrit 40.1 % (36-46); Lymphocytes Absolute Auto 1700 /uL (1100-4500); Lymphocytes Percent Auto 21.3 % (25-40); Mean Corpuscular HGB Conc 32.4 % (30-36); Mean Corpuscular Hemoglobin 26.2 PG (26-34); Mean Corpuscular Volume 80.9 fL (80-100); Monocytes Absolute Auto 400 /uL (0-900); Monocytes Percent Auto 5.4 % (3-14); Neutrophils Absolute Auto 5900 /uL (1500-7000); Neutrophils Percent Auto 72.8 % (50-75); Platelet Count 296 X10^3/uL (150-400); Red Blood Cell Count 4.95 X10^6/uL (4.0-5.2); Red Cell Distribution Width 17.2 % (11.6-14.8); White Blood Cell Count 8.1 X10^3/uL (4.5-11.0)
[2023-12-16 13:00] LABS: Appearance Urine UA CLEAR; Bilirubin Urine UA NEGATIVE (NEGATIVE); Color Urine UA YELLOW; Glucose Urine UA NEGATIVE (Negative); Ketones Urine UA NEGATIVE (NEGATIVE); Leukocyte Esterase Urine UA NEGATIVE (NEGATIVE); Nitrite Urine UA NEGATIVE (Negative); Occult Blood Urine UA TRACE-INTACT (Negative); Protein Urine UA NEGATIVE (Negative); Specific Gravity Urine UA <=1.005 (1.000-1.035); Urobilinogen Urine UA 0.2 E.U./dL (0.2)
[2023-12-16 13:07] LABS: Alanine Aminotransferase 18 IU/L (<35); Albumin 4.9 g/dL (3.5-5.0); Albumin Globulin Ratio 1.4 (1.0-2.8); Alkaline Phosphatase 79 U/L (38-126); Aspartate Aminotransferase 19 IU/L (14-36); BUN Creatinine Ratio 10.6 (6-22); Bilirubin Total 0.5 mg/dL (0.2-1.3); Blood Urea Nitrogen 7 mg/dL (7-17); Calcium 9.8 mg/dL (8.4-10.2); Carbon Dioxide 26 mmol/L (22-32); Chloride 104 mmol/L (98-107); Estimated Glomerular Filt Rate > 60 mL/min (>60); Globulin 3.5 g/dL (1.7-4.1); Glucose 88 mg/dL (70-100); HEMOLYSIS < 15 (0-50); Potassium 3.8 mmol/L (3.4-5.1); Sodium 141 mmol/L (137-145); Total Protein 8.4 g/dL (6.3-8.2)
[2023-12-16 13:16] LABS: Bacteria Urine Occasional (0-1); RBC Urine 0-1/HPF (0-5/HPF); Squamous Epithelial Cell Urine 0-1 /HPF (0-5/HPF); Urine Volume 10mL (spun); WBC Urine 0-1/HPF (0-5/HPF)
[2023-12-16 13:17] LABS: Culture Indicated Urine Cult Not Indicated
[2023-12-16 13:57] LABS: Thyroid Stimulating Hormone 0.879 uIU/mL (0.47-4.68)
[2023-12-16 14:16] LABS: Vitamin B12 348 pg/mL (239-931)
[2023-12-16 14:37] VITALS: BP 116/60; PULSE 98; RESP 14; O2SAT 99
== END 2023-12-16 14:38 | disposition home or self-care (01) ==
PROVIDERS: Emergency Provider Registered Nurse
DX: R53.83 Other fatigue (principal); N64.4 Mastodynia
CPT/HCPCS: 36415; 76642; 80053; 81001; 81025; 82607; 84443; 85025; 99283; 99284

== ENCOUNTER 2024-01-18 21:52 | Emergency (ER) | payer OTHER, MEDICAID, SELFPAY ==
[2024-01-18 21:58] VITALS: BP 131/73; PULSE 93; RESP 16; TEMP 35.8; O2SAT 99; BMI 27.9
--- NOTE | 2024-01-18 22:33 | ED.ABDPAIN ---
HPI - Abdominal Pain General Chief Complaint: Abdominal Pain Stated Complaint: back, abd and lt shoulder pain Time Seen by Provider: 01/18/24 22:29 Source: patient Mode of arrival: Ambulatory History of Present Illness HPI narrative: 23-year-old female with no significant past medical history presents for evaluation of 1 day of RUQ pain, lower back pain, and left shoulder pain. No medications taken at home for symptoms prior to arrival. Related Data Home Medications Medication Instructions Recorded Confirmed prenat.vits,vani,flk-[id number] 1 tab PO DAILY 11/12/21 02/12/22 Previous Rx's Medication Instructions Recorded ondansetron HCl 4 mg tablet 4 mg PO Q8H PRN nausea and 11/19/21 vomiting #20 tabs ferrous sulfate 325 mg (65 mg 325 mg PO DAILY #90 tabs 02/14/22 iron) tablet (Iron (ferrous sulfate)) fluconazole 150 mg tablet 150 mg PO Q3D 2 doses #2 tabs 03/16/22 (Diflucan) Allergies Allergy/AdvReac Type Severity Reaction Status Date / Time peanuts Allergy Intermediate Rash Uncoded 02/12/22 09:38 Patient History Medical History Healthy adult Surgical History [place] teeth extracted Family History Father Diabetes mellitus Hypothyroid Grandmother Hypothyroid Family/Other H/O thyroidectomy Brother Hyperlipidemia Mother Hypertension Cervical cancer Social History marital status: number of children: 0 household members: spouse lives independently: Yes housing: house pets and animals: Yes education level: vocational 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 occupational exposures/hazards: Yes (nitrous oxide, performs x-rays) special sofia needs: No travel history: over 6 months ago seatbelt use: always water heater temp set < 120 deg: Yes working smoke detector in home: Yes fire extinguisher in home: Yes carbon monox detector in home: Yes firearms in home: Yes do you feel safe at home: Yes Smoking Status: Never smoker second hand exposure: No alcohol intake: never substance use type: does not use during the past year weight has: other (fluctuated) well-balanced diet: about half the time daily servings fruits/ve-1 caffeine: No Type(s) of exercise: weight lifting Smoking Status: Never smoker tobacco type: vaping alcohol intake frequency: other Substance Use Type: marijuana Exam Initial Vital Signs Initial Vital Signs: Vital Signs Temperature 96.4 F L 01/18/24 21:58 Pulse Rate 93 H 01/18/24 21:58 Respiratory Rate 16 01/18/24 21:58 Blood Pressure 131/73 01/18/24 21:58 Pulse Oximetry 99 01/18/24 21:58 Oxygen Delivery Method Room Air 01/18/24 21:58 Const: Awake, alert, no acute distress, nontoxic appearing Cardiac: regular rate, regular rhythm RESP: unlabored, clear bilaterally, no wheezing GI: Soft, right upper quadrant tenderness to deep palpation without rebound or guarding, negative Gibbs sign Skin: Warm, Dry, intact, no rashes Neuro: AO x3, CN II-XII grossly intact, moves all extremities Course Orders Ordered: Discontinued Medications Ketorolac Tromethamine (Ketorolac 30 Mg/Ml Vial) 15 mg IV NOW ONE Stop: 01/18/24 22:36 Last Admin: 01/18/24 23:15 Dose: 15 mg Documented By: LS Vital Signs Vital signs: Vital Signs - 8 hr 01/18/24 21:58 01/18/24 22:57 01/18/24 23:00 Temperature 96.4 F L Pulse Rate 93 H 79 78 Respiratory Rate 16 Blood Pressure 131/73 Pulse Oximetry 99 98 98 Oxygen Delivery Method Room Air 01/18/24 23:30 01/19/24 00:00 01/19/24 00:27 Temperature Pulse Rate 76 76 84 Respiratory Rate 14 Blood Pressure 109/55 L Pulse Oximetry 99 97 98 Oxygen Delivery Method Room Air 01/19/24 00:27 Temperature Pulse Rate Respiratory Rate Blood Pressure 109/55 L Pulse Oximetry Oxygen Delivery Method MDM - Abdominal Pain Lab Data 01/18/24 22:40 01/18/24 22:40 Labs: Lab Results 01/18/24 01/18/24 Range/Units 22:40 22:46 WBC 10.7 (4.5-11.0) X10^3/uL RBC 5.20 (4.0-5.2) X10^6/uL Hgb 13.8 (12.0-16.0) g/dL Hct 41.9 (36-46) % MCV 80.5 (80-100) fL MCH 26.5 (26-34) PG MCHC 32.9 (30-36) % RDW 16.1 H (11.6-14.8) % Plt Count 288 (150-400) X10^3/uL Neut % (Auto) 59.0 (50-75) % Lymph % (Auto) 31.8 (25-40) % [place] % (Auto) 7.4 (3-14) % Eos % (Auto) 1.1 L (2-4) % Baso % (Auto) 0.7 (0-2) % Neut # (Auto) 6300 (9064-8722) /uL Lymph # (Auto) 3400 (7654-3217) /uL [place] # (Auto) 800 (0-900) /uL Eos # (Auto) 100 (0-450) /uL Baso # (Auto) 100 (0-100) /uL Sodium 138 (137-145) mmol/L Potassium 3.9 (3.4-5.1) mmol/L Chloride 99 (98-107) mmol/L Carbon Dioxide 31 (22-32) mmol/L BUN 9 (7-17) mg/dL Creatinine 0.60 (0.52-1.04) mg/dL Estimated GFR > 60 (>60) mL/min BUN/Creatinine Ratio 15.0 (6-22) Glucose 107 H (70-100) mg/dL Calcium 9.7 (8.4-10.2) mg/dL Total Bilirubin 0.4 (0.2-1.3) mg/dL AST 22 (14-36) IU/L ALT 29 (<35) IU/L Alkaline Phosphatase 71 (38-126) U/L Total Protein 8.3 H (6.3-8.2) g/dL Albumin 4.7 (3.5-5.0) g/dL Globulin 3.6 (1.7-4.1) g/dL Albumin/Globulin Ratio 1.3 (1.0-2.8) Lipase 98 (23-300) U/L Urine RBC 0-1/hpf (0-5/HPF) Urine WBC None seen (0-5/HPF) Ur Squamous Epith Cells 1-5 /hpf (0-5/HPF) Urine Bacteria Occasional (0-1) (None) Ur Culture Indicated? Cult not indicated Vol Urine Centrifuged 10ml (spun) Point of care testing: Point of Care Testing Test Results Negative Urine Dip Bedside Urine Glucose Negative Bedside Urine Bilirubin - Negative Bedside Urine Ketone - Negative Urine Specific [place] 1.015 Bedside Urine Occult Blood + Bedside Urine pH 6.5 Bedside Urine Protein - Negative Bedside Urine Urobilinogen - Negative Bedside Urine Nitrite - Negative Bedside Urine Leukocytes - Negative Esterase Imaging Data US - abdomen: Radiologist's Impression: PROCEDURE: US ABDOMEN LIMITED INDICATIONS: RIGHT UPPER QUADRANT PAIN TECHNIQUE: Real-time focused scanning was performed of the abdomen, with image documentation. COMPARISON: None. FINDINGS: The gallbladder is normal without stones, sludge, wall thickening, or pericholecystic fluid. Visible portion of the liver, biliary tree, right kidney, and pancreas are normal. No free fluid in the right upper quadrant. IMPRESSION: Normal right upper quadrant ultrasound. Dictated by: Paulette Hook M.D. on 01/18/2024 at 23:54 Approved by: Paulette Hook M.D. on 01/18/2024 at 23:55 [facility] Narrative Medical decision making narrative: Well-appearing patient with the above complaint. Physical exam is fairly unremarkable, back pain is not midline, no CVA tenderness, likely paraspinal in nature. Labs unremarkable. US abdomen negative for acute findings. Pain controlled with Toradol. Discharge Plan Departure Patient Disposition: Home Clinical Impression: Bilateral lower abdominal pain, Right upper quadrant abdominal pain Instructions: DI for Abdominal Pain-Adult Activity Restrictions/Additional Instructions: Your laboratory work and ultrasound imaging today did not show any signs of infection or inflammation. Your gallbladder is normal. You do not have a urinary tract infection today. I do not know the cause of your symptoms, but there does not appear to be a need for surgery or hospitalization at this time. Take Tylenol and ibuprofen as needed for pain at home. Prescriptions: No Action ferrous sulfate [Iron (ferrous sulfate)] 325 mg (65 mg iron) tablet 325 mg PO DAILY Qty: 90 0RF ondansetron HCl 4 mg tablet 4 mg PO Q8H PRN (Reason: nausea and vomiting) Qty: 20 0RF fluconazole [Diflucan] 150 mg tablet 150 mg PO Q3D Qty: 2 0RF prenat.vits,vani,pet-prkf-qljmu Tablet 1 tab PO DAILY Stand Alone Forms: Patient Portal/API
[2024-01-18 22:50] LABS: Add Manual Diff / Slide Review NO; Basophils Absolute Auto 100 /uL (0-100); Basophils Percent Auto 0.7 % (0-2); Eosinophils Absolute Auto 100 /uL (0-450); Eosinophils Percent Auto 1.1 % (2-4); Hematocrit 41.9 % (36-46); Hemoglobin 13.8 g/dL (12.0-16.0); Lymphocytes Absolute Auto 3400 /uL (1100-4500); Lymphocytes Percent Auto 31.8 % (25-40); Mean Corpuscular HGB Conc 32.9 % (30-36); Mean Corpuscular Hemoglobin 26.5 PG (26-34); Mean Corpuscular Volume 80.5 fL (80-100); Monocytes Absolute Auto 800 /uL (0-900); Monocytes Percent Auto 7.4 % (3-14); Neutrophils Absolute Auto 6300 /uL (1500-7000); Platelet Count 288 X10^3/uL (150-400); Red Cell Distribution Width 16.1 % (11.6-14.8); White Blood Cell Count 10.7 X10^3/uL (4.5-11.0)
[2024-01-18 22:57] VITALS: PULSE 79; O2SAT 98
[2024-01-18 23:00] VITALS: PULSE 78; O2SAT 98
[2024-01-18 23:00] LABS: Alanine Aminotransferase 29 IU/L (<35); Albumin 4.7 g/dL (3.5-5.0); Albumin Globulin Ratio 1.3 (1.0-2.8); Alkaline Phosphatase 71 U/L (38-126); Aspartate Aminotransferase 22 IU/L (14-36); Bilirubin Total 0.4 mg/dL (0.2-1.3); Blood Urea Nitrogen 9 mg/dL (7-17); Calcium 9.7 mg/dL (8.4-10.2); Carbon Dioxide 31 mmol/L (22-32); Chloride 99 mmol/L (98-107); Estimated Glomerular Filt Rate > 60 mL/min (>60); Globulin 3.6 g/dL (1.7-4.1); Glucose 107 mg/dL (70-100); HEMOLYSIS < 15 (0-50); Lipase 98 U/L (23-300); Potassium 3.9 mmol/L (3.4-5.1); Sodium 138 mmol/L (137-145); Total Protein 8.3 g/dL (6.3-8.2)
[2024-01-18 23:04] LABS: Urine Volume 10mL (spun)
[2024-01-18 23:05] LABS: Bacteria Urine Occasional (0-1); Culture Indicated Urine Cult Not Indicated; RBC Urine 0-1/HPF (0-5/HPF); Squamous Epithelial Cell Urine 1-5 /HPF (0-5/HPF); WBC Urine None Seen (0-5/HPF)
[2024-01-18] MEDS: KETOROLAC 30 MG/ML VIAL 15 MG IV (23:15)
--- NOTE | 2024-01-18 23:26 | PC.NURSE ---
US at bedside
[2024-01-18 23:30] VITALS: PULSE 76; O2SAT 99
[2024-01-19] VITALS: PULSE 76; O2SAT 97
[2024-01-19 00:27] VITALS: BP 109/55; PULSE 84; RESP 14; O2SAT 98
--- NOTE | 2024-01-19 00:30 | PC.NURSE ---
Pt resting quietly with eyes closed, resps even and not labored. No distress noted at this time. Pt rouses easily to verbal stimuli. 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
== END 2024-01-19 00:58 | disposition home or self-care (01) ==
PROVIDERS: Emergency Provider Emergency Medicine
DX: R10.32 Left lower quadrant pain (principal); R10.31 Right lower quadrant pain; R10.11 Right upper quadrant pain; M54.50 Low back pain, unspecified; M25.512 Pain in left shoulder
CPT/HCPCS: 36415; 76705; 80053; 81003; 81015; 81025; 83690; 85025; 96374; 99284; J1885

== ENCOUNTER 2024-03-19 15:38 | Emergency (ER) | payer OTHER, MEDICAID, SELFPAY ==
[2024-03-19] VITALS (9 sets, daily range): BP systolic 111–137; BP diastolic 63–78; PULSE 78–92; RESP 18–22; TEMP 36.7; O2SAT 97–100; BMI 27.4
--- NOTE | 2024-03-19 15:46 | DI.RAD.S_ITS ---
PROCEDURE: XR CHEST 2V INDICATIONS: chest pain TECHNIQUE: 2 views of the chest were acquired. COMPARISON: None. FINDINGS: Surgical changes and devices: None. Lungs and pleura: Lungs are clear. No pleural effusions or pneumothorax. Mediastinum: Mediastinal contours are normal. Heart size is normal. Bones and chest wall: No suspicious bony abnormalities. Soft tissues appear unremarkable. IMPRESSION: No acute cardiopulmonary pathology. Dictated by: Karan Reich M.D. on 03/19/2024 at 15:58 Approved by: Karan Reich M.D. on 03/19/2024 at 15:58
--- NOTE | 2024-03-19 16:01 | EKG_ITS ---
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
[2024-03-19 16:30] LABS: Add Manual Diff / Slide Review NO; Basophils Absolute Auto 100 /uL (0-100); Basophils Percent Auto 0.7 % (0-2); Eosinophils Absolute Auto 100 /uL (0-450); Eosinophils Percent Auto 0.5 % (2-4); Hematocrit 39.7 % (36-46); Lymphocytes Absolute Auto 3100 /uL (1100-4500); Lymphocytes Percent Auto 26.1 % (25-40); Mean Corpuscular HGB Conc 32.7 % (30-36); Mean Corpuscular Hemoglobin 26.9 PG (26-34); Mean Corpuscular Volume 82.5 fL (80-100); Monocytes Absolute Auto 700 /uL (0-900); Monocytes Percent Auto 6.4 % (3-14); Neutrophils Absolute Auto 7800 /uL (1500-7000); Neutrophils Percent Auto 66.3 % (50-75); Platelet Count 279 X10^3/uL (150-400); Red Blood Cell Count 4.81 X10^6/uL (4.0-5.2); Red Cell Distribution Width 16.2 % (11.6-14.8); White Blood Cell Count 11.7 X10^3/uL (4.5-11.0)
[2024-03-19 16:57] LABS: RBC Urine 1-5/HPF (0-5/HPF); Squamous Epithelial Cell Urine 1-5 /HPF (0-5/HPF); Urine Volume 10mL (spun); WBC Urine 0-1/HPF (0-5/HPF)
[2024-03-19 16:58] LABS: Bacteria Urine Few (2-10); Culture Indicated Urine Cult Not Indicated
[2024-03-19 17:44] LABS: INR 1.1 (0.9-1.3)
[2024-03-19 17:46] LABS: PTT Partial Thromboplastin Tim 30 SECONDS (25.1-36.5)
[2024-03-19 17:58] LABS: Alanine Aminotransferase 19 IU/L (<35); Albumin 4.8 g/dL (3.5-5.0); Albumin Globulin Ratio 1.4 (1.0-2.8); Alkaline Phosphatase 74 U/L (38-126); Aspartate Aminotransferase 21 IU/L (14-36); Bilirubin Total 0.4 mg/dL (0.2-1.3); Blood Urea Nitrogen 9 mg/dL (7-17); Calcium 9.7 mg/dL (8.4-10.2); Carbon Dioxide 26 mmol/L (22-32); Chloride 101 mmol/L (98-107); Creatine Kinase 63 U/L (30-135); Estimated Glomerular Filt Rate > 60 mL/min (>60); Globulin 3.4 g/dL (1.7-4.1); Glucose 92 mg/dL (70-100); HEMOLYSIS < 15 (0-50); Lipase 97 U/L (23-300); Magnesium 1.8 mg/dL (1.6-2.3); Sodium 137 mmol/L (137-145); Total Protein 8.2 g/dL (6.3-8.2)
[2024-03-19 18:09] LABS: NT-proBNP (BNP-Adult 18+) 35 pg/mL (<125); Troponin I < 0.012 ng/mL (0.01-0.034)
[2024-03-19] MEDS: ONDANSETRON 4 MG/2 ML INJ IV (18:36)
--- NOTE | 2024-03-19 18:46 | ED_ITS ---
HPI - Chest Pain General Chief Complaint: Chest Pain Stated Complaint: left arm and shoulder px Time Seen by Provider: 03/19/24 18:46 Source: patient Mode of arrival: Ambulatory Limitations: no limitations History of Present Illness HPI narrative: 23-year-old female has history of left breast pain, previous ultrasound imaging reportedly unremarkable, has left-sided chest discomfort now for the last 2-3 days intermittent, sometimes worse with left upper arm movements, not worse with inspiration or changes in position supine upright. No known cardiac problems. No known chronic lung problems. She has not tried any specific medications. No cough or shortness of breath. Related Data Home Medications Medication Instructions Recorded Confirmed prenat.vits,vani,uph-srkc-hobeq 1 tab PO DAILY 11/12/21 02/12/22 Previous Rx's Medication Instructions Recorded ondansetron HCl 4 mg tablet 4 mg PO Q8H PRN nausea and 11/19/21 vomiting #20 tabs ferrous sulfate 325 mg (65 mg 325 mg PO DAILY #90 tabs 02/14/22 iron) tablet (Iron (ferrous sulfate)) fluconazole 150 mg tablet 150 mg PO Q3D 2 doses #2 tabs 03/16/22 (Diflucan) Allergies Allergy/AdvReac Type Severity Reaction Status Date / Time peanuts Allergy Intermediate Rash Uncoded 03/19/24 15:46 Review of Systems Review of Systems Narrative: see HPI Patient History Medical History Healthy adult Surgical History [place] teeth extracted Family History Father Diabetes mellitus Hypothyroid Grandmother Hypothyroid Family/Other H/O thyroidectomy Brother Hyperlipidemia Mother Hypertension Cervical cancer Social History marital status: number of children: 0 household members: spouse lives independently: Yes housing: house pets and animals: Yes education level: vocational 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) current occupational exposures/hazards: Yes (nitrous oxide, performs x-rays) special sofia needs: No travel history: over 6 months ago seatbelt use: always water heater temp set < 120 deg: Yes working smoke detector in home: Yes fire extinguisher in home: Yes carbon monox detector in home: Yes firearms in home: Yes do you feel safe at home: Yes Smoking Status: Never smoker second hand exposure: No alcohol intake: never substance use type: does not use during the past year weight has: other (fluctuated) well-balanced diet: about half the time daily servings fruits/ve-1 caffeine: No Type(s) of exercise: weight lifting Smoking Status: Never smoker tobacco type: vaping alcohol intake frequency: other Substance Use Type: marijuana Exam Narrative Exam Narrative: GENERAL: Well-developed patient, in mild distress. HEAD: Atraumatic. Normocephalic. EYES: Pupils equal round and reactive. Extraocular motions intact. No scleral icterus. No injection or drainage. ENT: Nose without bleeding, purulent drainage. Throat without erythema, tonsillar hypertrophy or exudate. Airway patent. NECK: Trachea midline. Non tender CARDIOVASCULAR: Regular rate and rhythm without murmurs, gallops, or rubs. RESPIRATORY: Clear to auscultation. Breath sounds equal bilaterally. No wheezes, rales, or rhonchi. Some discomfort on compression of sternum and T-spine, possible musculoskeletal component of discomfort. No bruising or skin changes obvious. Breast: Left breast without obvious abnormalities, no dominant masses in superior upper outer area of discomfort, possible fibrocystic like changes. No redness, no skin dimpling. GASTROINTESTINAL: Abdomen soft, non-tender, nondistended. EXTREMITIES: No edema or joint tenderness. BACK: Nontender without deformity or crepitance. No flank tenderness. NEURO: AOx3. Motor functions grossly nonfocal SKIN: No rash or erythema of visible areas Initial Vital Signs Initial Vital Signs: Vital Signs Temperature 98.1 F 03/19/24 15:40 Pulse Rate 87 03/19/24 15:40 Respiratory Rate 18 03/19/24 15:40 Blood Pressure 137/72 03/19/24 15:40 Pulse Oximetry 100 03/19/24 15:40 Oxygen Delivery Method Room Air 03/19/24 15:40 Course Orders Ordered: ED Orders 03/19/24 17:20 Comprehensive Metabolic Panel Stat Lipase Stat Magnesium Stat NT-proBNP (BNP-Adult 18+) Stat PTT Partial Thromboplastin [place] Stat Prothrombin Time INR Stat Troponin & CK Cardiac Panel Stat Discontinued Medications Aspirin (Aspirin 81 Mg Chew Tab) 324 mg PO NOW ONE Stop: 03/19/24 15:47 Last Admin: 03/19/24 17:02 Dose: Not Given Documented By: RICARDO Ibuprofen (Ibuprofen 400 Mg Tablet) 400 mg PO NOW ONE Stop: 03/19/24 19:06 Last Admin: 03/19/24 19:11 Dose: 400 mg Documented By: Ondansetron HCl (Ondansetron 4 Mg/2 Ml Inj) 4 mg IV NOW ONE Stop: 03/19/24 18:34 Last Admin: 03/19/24 18:36 Dose: 4 mg Documented By: RICARDO Vital Signs Vital signs: Vital Signs - 8 hr 03/19/24 18:00 03/19/24 18:42 03/19/24 19:00 Pulse Rate 92 H 86 85 Respiratory Rate 21 22 Blood Pressure 135/78 Pulse Oximetry 97 98 Oxygen Delivery Method Room Air Room Air MDM - Chest Pain Lab Data Attestation: I reviewed the patient's lab results. Lab results narrative: White blood cell count 54291, hemoglobin 13, platelets 133622, basic metabolic panel unremarkable. Liver functions and lipase normal. Urine test negative. Urine studies negative 03/19/24 16:20 03/19/24 17:20 Labs: Lab Results 03/19/24 03/19/24 03/19/24 Range/Units 16:08 16:20 17:20 WBC 11.7 H (4.5-11.0) X10^3/uL RBC 4.81 (4.0-5.2) X10^6/uL Hgb 13.0 (12.0-16.0) g/dL Hct 39.7 (36-46) % MCV 82.5 (80-100) fL MCH 26.9 (26-34) PG MCHC 32.7 (30-36) % RDW 16.2 H (11.6-14.8) % Plt Count 279 (150-400) X10^3/uL Neut % (Auto) 66.3 (50-75) % Lymph % (Auto) 26.1 (25-40) % Angelina % (Auto) 6.4 (3-14) % Eos % (Auto) 0.5 L (2-4) % Baso % (Auto) 0.7 (0-2) % Neut # (Auto) 7800 H (9267-9817) /uL Lymph # (Auto) 3100 (5529-6698) /uL Angelina # (Auto) 700 (0-900) /uL Eos # (Auto) 100 (0-450) /uL Baso # (Auto) 100 (0-100) /uL PT 12.0 (9.4-12.5) SECONDS INR 1.1 (0.9-1.3) APTT 30 (25.1-36.5) SECONDS Sodium 137 (137-145) mmol/L Potassium 4.0 (3.4-5.1) mmol/L Chloride 101 (98-107) mmol/L Carbon Dioxide 26 (22-32) mmol/L BUN 9 (7-17) mg/dL Creatinine 0.69 (0.52-1.04) mg/dL Estimated GFR > 60 (>60) mL/min BUN/Creatinine Ratio 13.0 (6-22) Glucose 92 (70-100) mg/dL Calcium 9.7 (8.4-10.2) mg/dL Magnesium 1.8 (1.6-2.3) mg/dL Total Bilirubin 0.4 (0.2-1.3) mg/dL AST 21 (14-36) IU/L ALT 19 (<35) IU/L Alkaline Phosphatase 74 (38-126) U/L Total Creatine Kinase 63 (30-135) U/L Troponin I < 0.012 (0.01-0.034) ng/mL NT-Pro-B Natriuret Pep 35 (<125) pg/mL Total Protein 8.2 (6.3-8.2) g/dL Albumin 4.8 (3.5-5.0) g/dL Globulin 3.4 (1.7-4.1) g/dL Albumin/Globulin Ratio 1.4 (1.0-2.8) Lipase 97 (23-300) U/L Urine RBC 1-5/hpf (0-5/HPF) Urine WBC 0-1/hpf (0-5/HPF) Ur Squamous Epith Cells 1-5 /hpf (0-5/HPF) Urine Bacteria Few (2-10) H (None) Ur Culture Indicated? Cult not indicated Vol Urine Centrifuged 10ml (spun) Point of Care Testing Test Results Negative Urine Dip Bedside Urine Glucose Negative Bedside Urine Bilirubin - Negative Bedside Urine Ketone - Negative Urine Specific [place] 1.020 Bedside Urine Occult Blood + Bedside Urine pH 6.0 Bedside Urine Protein - Negative Bedside Urine Urobilinogen - Negative Bedside Urine Nitrite - Negative Bedside Urine Leukocytes +/- 15 Esterase Imaging Data Chest x-ray: Radiologist's Impression: [address] [address] XRay Report Signed Patient: Katelin Talbert MR#: [id number] : 2000 Acct:[id number] Age/Sex: 23 / F Date of Service: 03/19/24 Loc: ED Accession Number: [id number] Procedure: XR chest 2V Ordering Provider: Mitra Parkinson D.O. PROCEDURE: XR CHEST 2V INDICATIONS: chest pain TECHNIQUE: 2 views of the chest were acquired. COMPARISON: None. FINDINGS: Surgical changes and devices: None. Lungs and pleura: Lungs are clear. No pleural effusions or pneumothorax. Mediastinum: Mediastinal contours are normal. Heart size is normal. Bones and chest wall: No suspicious bony abnormalities. Soft tissues appear unremarkable. IMPRESSION: No acute cardiopulmonary pathology. Dictated by: Karan Reich M.D. on 03/19/2024 at 15:58 Approved by: Karan Reich M.D. on 03/19/2024 at 15:58 ECG Data Attestation: I personally reviewed and interpreted this ECG as follows: Interpretation: Normal sinus rhythm with rate of 80, no obvious ST segment elevation or depression changes. [place] 148, QRS 88, QTC 403. MDM Narrative Medical decision making narrative: Left chest and breast discomfort. Previous left breast ultrasound 3 months ago reportedly unremarkable. Left upper outer breast area of discomfort with possible small cystic change on exam, no dominant masses. No skin dimpling your changes on skin breast exam. Chest x-ray unremarkable, EKG without obvious ischemic changes, blood work negative. Consider mammogram in follow up. Might have mastodynia and unrelated chest wall discomfort. Trial of ibuprofen for chest wall discomfort. Further follow up as an outpatient. Advised to get further imaging such as mammography for her left breast symptoms. No obvious cellulitis/abscess suspected by clinical exam at this time, no role for antibiotics at this time. Discharge Plan Departure Patient Disposition: Home Clinical Impression: Chest wall discomfort, Pain of left breast Activity Restrictions/Additional Instructions: Atypical left-sided chest pain, EKG and chest x-ray without obvious acute changes, blood work reassuring. No evidence for heart attack or pneumonia changes. Some discomfort on compression of your sternum chest bone when pushed toward your spine, possible musculoskeletal component of discomfort. You also seemed to have left upper lateral breast discomfort, reportedly had ultrasound 3 months ago that was negative, consider mammography screening. Sometimes fibrocystic breast disease can be tender and painful in this area, though it is important to make sure there is no other calcifications or lesions that might need biopsy to make sure there is no cancerous change. Follow up with your regular doctor to coordinate mammography as an outpatient. Consider use of ibuprofen for chest wall discomfort symptoms. Regular doctor in the next couple of days to coordinate mammography. Take [id number] ibuprofen for chest wall discomfort. Further evaluation of chest and breasts symptoms as an outpatient for now. Return earlier to this/nearest emergency department for any change worsening symptoms or any concerns prior Prescriptions: No Action ferrous sulfate [Iron (ferrous sulfate)] 325 mg (65 mg iron) tablet 325 mg PO DAILY Qty: 90 0RF ondansetron HCl 4 mg tablet 4 mg PO Q8H PRN (Reason: nausea and vomiting) Qty: 20 0RF fluconazole [Diflucan] 150 mg tablet 150 mg PO Q3D Qty: 2 0RF prenat.vits,vani,[id number] Tablet 1 tab PO DAILY Stand Alone Forms: Patient Portal/API/Survey
[2024-03-19] MEDS: IBUPROFEN 400 MG TABLET PO (19:11)
== END 2024-03-19 19:25 | disposition home or self-care (01) ==
PROVIDERS: Emergency Medicine; Emergency Provider Emergency Medicine
DX: R07.89 Other chest pain (principal); N64.4 Mastodynia
CPT/HCPCS: 36415; 71046; 80053; 81003; 81015; 81025; 82550; 83690; 83735; 83880; 84484; 85025; 85610; 85730; 93005; 96374; 99284; J2405